=== PATIENT | female | born 1990 | race Caucasian/White ===

== ENCOUNTER → 2017-04-08 | Outpatient (CLI) | payer OTHER ==
--- NOTE | 2017-04-08 22:24 | MR ---
EXAMINATION TYPE: MR brain/lspine wo con DATE OF EXAM: 04/08/2017 COMPARISON: NONE HISTORY: Headaches and lumbago per order. Back pain for a while at the buttocks per patient. TECHNIQUE: Multiplanar, multisequence imaging of the lumbar spine, brain and brainstem are all perfor med without IV contrast. FINDINGS: BRAIN: Diffusion weighted images demonstrate no evidence of a recent infarct or other diffusion abnormality. There is no extraaxial fluid collection or significant white matter signal abnormality. T2 hyperinten se focus on FLAIR images 23 and 24 does not reproduce and T2-weighted images right parietal region an d is presumed artifact. The ventricular system and cisternal spaces are normal in size and appearance . The brain volume is age appropriate. Midline structures demonstrate normal morphology. The craniocervical junction appears within normal limits. Normal vascular flow voids are present. The visualized sinuses are clear and the globes are i ntact. IMPRESSION: No significant finding is seen to account for patient's symptoms. L-SPINE: FINDINGS: Survey images shows levoconvex scoliosis centered in the upper to mid lumbar spine. Sagitta l images of the lumbar spine show vertebral body heights to appear satisfactory. There is loss of nor mal lumbar lordosis on sagittal images. There is disc desiccation L4-L5 level otherwise intervertebra l discs demonstrate normal heights and hydration. No large posterior disc herniations are seen on sag ittal images. The conus medullaris is normal in position and signal ending at inferior L1 level. The bone marrow signal intensity is within normal limits. No significant spurring is seen. Axial images show the T12-L1, L1-L2, L2-L3, and L3-L4 levels all to appear within normal limits. Axial images at L4-L5 level show broad-based central disc protrusion mildly effacing anterior thecal sac, bilateral neural foramina are patent. Increased signal posteriorly consistent with annular tear is noted at this level. Axial images at L5-S1 level are felt within normal limits. IMPRESSION: Disc desiccation with annular tear L4-L5 level. Small posterior disc herniation minimally effacing anterior thecal sac at this level.
== END | disposition home or self-care (01) ==
LOC: RADMRIMAIN 20:41
PROVIDERS: ATTEND Nurse Practitioner Acute Care
DX: M51.26 Other intervertebral disc displacement, lumbar region (principal); M51.36 Other intervertebral disc degeneration, lumbar region; R51 Headache; Z88.0 Allergy status to penicillin
CPT/HCPCS: 70551; 72148

== ENCOUNTER → 2019-03-03 | Outpatient (CLI) | payer OTHER ==
[2019-03-03 15:41] LABS: HCT 41.2 % (34.0-46.0); HGB 13.4 gm/dL (11.4-16.0); MCH 29.1 pg (25.0-35.0); MCHC 32.5 g/dL (31.0-37.0); MCV 89.7 fL (80.0-100.0); Mean Platelet Volume 6.7; Platelet Count 303 k/uL (150-450); RBC 4.59 m/uL (3.80-5.40); WBC 6.7 k/uL (3.8-10.6)
[2019-03-04 00:51] LABS: Albumin 4.3 g/dL (3.80-4.90); Albumin/Globulin Ratio 2.53 (1.60-3.17); Anion Gap 10.2 mmol/L (4.00-12.00); Calcium 8.8 mg/dL (8.7-10.3); Carbon Dioxide 24.8 mmol/L (21.6-31.8); Globulin 1.7 g/dL (1.6-3.3); Potassium 3.9 mmol/L (3.5-5.5); Total Bilirubin 0.2 mg/dL (0.2-1.2)
[2019-03-04 01:59] LABS: T4, Free (Free Thyroxine) 0.9 ng/dL (0.80-1.80)
[2019-03-04 02:02] LABS: Hemoglobin A1C 5.6 % (4.0-6.0)
== END | disposition home or self-care (01) ==
LOC: LABWHC1 14:36
PROVIDERS: ATTEND Obstetrics & Gynecology
DX: E03.9 Hypothyroidism, unspecified (principal); R10.2 Pelvic and perineal pain; R60.0 Localized edema; Z13.1 Encounter for screening for diabetes mellitus
CPT/HCPCS: 36415; 80053; 83036; 84439; 84443; 85027

== ENCOUNTER 2021-04-23 13:45 | Emergency (ER) | payer OTHER ==
[2021-04-23 14:06] VITALS: RESP 18; TEMP 98
--- NOTE | 2021-04-23 15:39 | XR ---
EXAMINATION TYPE: XR nasal bone DATE OF EXAM: 04/23/2021 COMPARISON: NONE HISTORY: Pain TECHNIQUE: 3 views submitted FINDINGS: Maxillary styloid intact. Visualized osseous structures intact. There is a thin linear luce ncy along the anterior margin of the nasal bridge no significant depression. Nasal septal deviation n oted. IMPRESSION: 1. Findings compatible with hairline fracture through the anterior margin of the nasal bridge with no significant depression.
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
[2021-04-23 16:12] VITALS: BP 116/76; PULSE 63
== END 2021-04-23 16:12 | disposition home or self-care (01) ==
LOC: EC 13:45
DX: S02.2XXA Fracture of nasal bones, initial encounter for closed fracture (principal); V48.6XXA Car passenger injured in noncollision transport accident in traffic accident, initial encounter; Y92.410 Unspecified street and highway as the place of occurrence of the external cause
CPT/HCPCS: 70160; 99284

== ENCOUNTER → 2021-05-31 | Outpatient (CLI) | payer OTHER ==
[2021-06-01 04:16] LABS: T4, Free (Free Thyroxine) 0.8 ng/dL (0.80-1.80)
[2021-06-01 04:38] LABS: Thyroid Peroxidase Antibodies 5195.2 U/mL (0.0-60.0)
== END | disposition home or self-care (01) ==
LOC: LABWHC1 14:04
PROVIDERS: ATTEND Internal Medicine
DX: R00.2 Palpitations (principal)
CPT/HCPCS: 36415; 84439; 84443; 84481; 86376; 86800

== ENCOUNTER → 2021-06-10 | Outpatient (CLI) | payer OTHER ==
--- NOTE | 2021-06-23 10:32 | EM ---
EVENT MONITOR SEVEN-DAY EVENT MONITOR: INDICATION: Palpitations. Underlying rhythm is sinus. There were episodes of sinus tachycardia and sinus bradycardia noted. Occasional PVCs are noted. There are no episodes of sustained ventricular or supraventricular tachyarrhythmias. There are no episodes of more than 2- second pauses. CONCLUSIONS: This seven-day event monitor shows sinus rhythm with sinus tachycardia and sinus bradycardia. MMODL / IJN: [id number] /
== END | disposition home or self-care (01) ==
LOC: RADECHMAIN 13:42
PROVIDERS: ATTEND Internal Medicine
DX: R00.0 Tachycardia, unspecified (principal); R00.1 Bradycardia, unspecified
CPT/HCPCS: 93270

== ENCOUNTER → 2023-12-01 | Outpatient (CLI) | payer OTHER ==
--- NOTE | 2023-12-01 12:48 | CT ---
EXAMINATION TYPE: CT abdomen pelvis w con CT DLP: 710 mGycm, Automated exposure control for dose reduction was used. DATE OF EXAM: 12/01/2023 12:36 PM COMPARISON: None CLINICAL INDICATION:Female, 33 years old with history of abd pain; TECHNIQUE: Axial CT abdomen pelvis w con;Sagittal and coronal reformats were created on a separate w orkstation. Contrast used: 100 cc Isovue-300. Oral contrast used: Oral contrast given. FINDINGS: LOWER CHEST: Unremarkable ABDOMEN LIVER: Unremarkable GALLBLADDER AND BILE DUCTS: Unremarkable. PANCREAS: Unremarkable. SPLEEN: Unremarkable. ADRENAL GLANDS: Unremarkable. KIDNEYS AND URETERS: No evidence of hydronephrosis or renal calculus. The ureters are unremarkable. PELVIS BLADDER: Unremarkable REPRODUCTIVE: Unremarkable. ABDOMEN & PELVIS STOMACH AND BOWEL: No evidence of bowel obstruction. The appendix is visualized and filled with contr ast. PERITONEUM/RETROPERITONEUM: No evidence of pneumoperitoneum or free fluid. VASCULATURE: No evidence of aortic aneurysm. MUSCULOSKELETAL: No acute osseous abnormalities LYMPH NODES: No gross evidence for lymphadenopathy. SOFT TISSUE/ABDOMINAL WALL: Unremarkable IMPRESSION: No evidence for obstructive uropathy or renal calculus. The appendix is normal. No acute abdominal pr ocess.
== END | disposition home or self-care (01) ==
LOC: RADCTMAIN 10:31
PROVIDERS: ATTEND Internal Medicine Geriatric Medicine
DX: R10.9 Unspecified abdominal pain (principal)
CPT/HCPCS: 74177; Q9967

== ENCOUNTER 2024-10-26 18:36 | Emergency (ER) | payer OTHER ==
[2024-10-26 18:45] VITALS: RESP 20
--- NOTE | 2024-10-26 18:55 | ED ---
GI Bleed HPI - General Chief complaint: GI Bleed Stated complaint: Rectal Bleeding Time Seen by Provider: 10/26/24 18:54 Source: patient, RN notes reviewed Mode of arrival: ambulatory Limitations: no limitations - History of Present Illness Initial comments: Patient is a 34-year-old female presented to the ER for evaluation of rectal bleeding. Patient states around 5 PM this evening while having a bowel movement she noted a large amount of bright red blood in the toilet. She states it felt like a menstrual cycle amount of bleeding. She states the amount of bleeding has since subsided. She has no history of GI bleeds, ulcerative colitis, Crohn's disease, reticulitis, bowel surgeries/resections, hemorrhoids or anal fissures. Patient denies any abdominal pain, nausea, vomiting, fevers, chills, chest pain, shortness of breath, urinary complaints or peripheral edema. - Related Data Home Medications Medication Instructions Recorded Confirmed [id number] 1 tab PO DAILY 10/30/14 11/03/14 Allergies Allergy/AdvReac Type Severity Reaction Status Date / Time amoxicillin Allergy Anaphylaxis Verified 10/26/24 18:45 Penicillins Allergy Anaphylaxis Verified 10/26/24 18:45 Review of Systems ROS Statement: Those systems with pertinent positive or pertinent negative responses have been documented in the HPI. ROS Other: All systems not noted in ROS Statement are negative. Past Medical History Additional Past Medical History / Comment(s): ventura's History of Any Multi-Drug Resistant Organisms: MRSA Date of last positivie culture/infection: 2014 Past Surgical History: Tubal Ligation Past Psychological History: Anxiety Smoking Status: Never smoker Past Alcohol Use History: None Reported Past Drug Use History: None Reported General Exam Limitations: no limitations General appearance: alert, in no apparent distress Respiratory exam: Present: normal lung sounds bilaterally. Absent: respiratory distress, wheezes, rales, rhonchi, stridor Cardiovascular Exam: Present: regular rate, normal rhythm, normal heart sounds. Absent: systolic murmur, diastolic murmur, rubs, gallop, clicks GI/Abdominal exam: Present: soft, normal bowel sounds. Absent: distended, tenderness, guarding, rebound, rigid Rectal exam: Present: normal inspection, normal rectal tone Neurological exam: Present: alert, oriented X3, CN II-XII intact Skin exam: Present: warm, dry, intact, normal color. Absent: rash Course Vital Signs 10/26/24 10/26/24 18:40 22:40 Temperature 97.7 F 97.9 F Pulse Rate 87 81 Respiratory 20 20 Rate Blood Pressure 122/69 118/71 O2 Sat by Pulse 97 98 Oximetry - Reevaluation(s) Reevaluation #1: Rectal exam chaperoned by Maddy Hull RN. Medical Decision Making - Medical Decision Making @ -Was pt. sent in by a medical professional or institution (, PA, [facility], [facility], hospital, or long term...) When possible be specific @ -No Did you speak to anyone other than the patient for history (EMS, parent, family, police, friend...)? What history was obtained from this source @ -No Did you review nursing and triage notes (agree or disagree)? Why? @ -I reviewed and agree with nursing and triage notes Were old charts reviewed (outside hosp., previous admission, EMS record, old EKG, old radiological studies, urgent care reports/EKG's, long term records)? Report findings @ -No old charts were reviewed Differential Diagnosis (chest pain, altered mental status, abdominal pain women, abdominal pain men, vaginal bleeding, weakness, fever, dyspnea, syncope, headache, dizziness, GI bleed, back pain, seizure, CVA, palpatations, mental health, musculoskeletal)? @ -Differential GI Bleed: Esophageal varices, aortoenteric fistula, Peyton- Alonso, gastritis, peptic ulcer disease, diverticulosis, inflammatory bowel disease, hemorrhoids, fissure, colitis, malignancy, Meckel's diverticulum, this is not meant to be an all-inclusive list. EKG interpreted by me (3pts min.). @ -None done X-rays interpreted by me (1pt min.). @ -None done CT interpreted by me (1pt min.). @ -CT abdomen pelvis negative for acute intra-abdominal process. U/S interpreted by me (1pt. min.). @ -None done What testing was considered but not performed or refused? (CT, X-rays, U/S, labs)? Why? @ -None What meds were considered but not given or refused? Why? @ -None Did you discuss the management of the patient with other professionals (professionals i.e. , PA, [employer], lab, RT, psych nurse, family welfare social work professor, belt splicer, teacher, family preservation officer, casey saw operator)? Give summary @ -No Was smoking cessation discussed for >3mins.? @ -No Was critical care preformed (if so, how long)? @ -No Were there social determinants of health that impacted care today? How? (Homelessness, low income, unemployed, alcoholism, drug addiction, transportation, low edu. Level, literacy, decrease access to med. care, skilled nursing, rehab)? @ -No Was there de-escalation of care discussed even if they declined (Discuss DNR or withdrawal of care, Hospice)? DNR status @ -No What co-morbidities impacted this encounter? (DM, HTN, Smoking, COPD, CAD, Cancer, CVA, ARF, Chemo, Hep., AIDS, mental health diagnosis, sleep apnea, morbid obesity)? @ -None Was patient admitted / discharged? Hospital course, mention meds given and route, prescriptions, significant lab abnormalities, going to OR and other p ertinent info. @ -Discharge. 34-year-old female presented the ER for evaluation of rectal bleeding. Upon rooming, history and physical exam completed. Vitals stable. Patient in no signs of acute distress nontoxic-appearing. Exam benign. Rectal exam performed and chaperoned by Maddy Fletcher RN. Exam negative for gross blood, hemorrhoids or anal fissures. Laboratory studies obtained showing a l eukocytosis of 16.6 with a left shift which is believed to be due to current prednisone use for a sinus infection. Stable hemoglobin 12.9. Coagulation studies within normal limits. CMP unimpressive. Stool occult positive. Urinalysis with few bacteria urine will be sent for culture. Antibiotics pending UA culture as patient has no current symptoms, patient is agreeable. hCG negative. CT abdomen pelvis negative. As patient has stable hemoglobin, stable vital signs, and no acute process seen on CT abdomen pelvis I believe patient is stable for discharge and outpatient follow-up. Upon reevaluation, patient resting company in exam and no signs of acute distress. Results discussed with patient, all questions answered. Patient denying any reoccurring bleeding while in the ER. Strict return parameters were discussed. I advised her to follow-up closely with PCP in the next 1 to 2 days. Patient discharged in stable condition. Patient verbally expressed understanding and agreement with care plan. Case discussed with ED attending, Dr. Antunez. Undiagnosed new problem with uncertain prognosis? @ -No Drug Therapy requiring intensive monitoring for toxicity (Heparin, Nitro, Insuli n, Cardizem)? @ -No Were any procedures done? @ -No Diagnosis/symptom? @ -Stool occult positive Acute, or Chronic, or Acute on Chronic? @ -Acute Uncomplicated (without systemic symptoms) or Complicated (systemic symptoms)? @ -Uncomplicated Side effects of treatment? @ -No Exacerbation, Progression, or Severe Exacerbation? @ -No Poses a threat to life or bodily function? How? (Chest pain, [place], [place], pneumonia, PE, COPD, DKA, ARF, appy, cholecystitis, CVA, Diverticulitis, Homicidal, Suicidal, threat to staff... and all critical care pts) @ -No - Lab Data Result diagrams: 10/26/24 20:13 10/26/24 20:13 Lab Results 10/26/24 10/26/24 10/26/24 Range/Units 19:07 19:58 19:58 WBC (3.8-10.6) k/uL RBC (3.80-5.40) m/uL Hgb (11.4-16.0) gm/dL Hct (34.0-46.0) % MCV (80.0-100.0) fL MCH (25.0-35.0) pg MCHC (31.0-37.0) g/dL RDW (11.5-15.5) % Plt Count (150-450) k/uL MPV Neutrophils % % Lymphocytes % % Monocytes % % Eosinophils % % Basophils % % Neutrophils # (1.3-7.7) k/uL Lymphocytes # (1.0-4.8) k/uL Monocytes # (0-1.0) k/uL Eosinophils # (0-0.7) k/uL Basophils # (0-0.2) k/uL PT (10.0-12.5) sec INR (<1.2) APTT (22.0-30.0) sec Sodium (137-145) mmol/L Potassium (3.5-5.1) mmol/L Chloride (98-107) mmol/L Carbon Dioxide (22-30) mmol/L Anion Gap mmol/L BUN (7-17) mg/dL Creatinine (0.52-1.04) mg/dL Est GFR (CKD-EPI)AfAm (>60 ml/min/1.73 sqM) Est GFR (CKD-EPI)NonAf (>60 ml/min/1.73 sqM) Glucose (74-99) mg/dL Calcium (8.4-10.2) mg/dL Total Bilirubin (0.2-1.3) mg/dL AST (14-36) U/L ALT (4-34) U/L Alkaline Phosphatase (38-126) U/L Total Protein (6.3-8.2) g/dL Albumin (3.5-5.0) g/dL Urine Color Colorless Urine Appearance Cloudy H (Clear) Urine pH 7.0 (5.0-8.0) Ur Specific [place] 1.013 (1.001-1.035) Urine Protein Negative (Negative) Urine Glucose (UA) Negative (Negative) Urine Ketones Negative (Negative) Urine Blood Negative (Negative) Urine Nitrite Negative (Negative) Urine Bilirubin Negative (Negative) Urine Urobilinogen <2.0 (<2.0) mg/dL Ur Leukocyte Esterase Negative (Negative) Urine RBC 1 (0-5) /hpf Urine WBC <1 (0-5) /hpf Ur Squamous Epith Cells 4 (0-4) /hpf Amorphous Sediment Rare H (None) /hpf Urine Bacteria Few H (None) /hpf Urine Mucus Rare H (None) /hpf Urine HCG, Qual Not Detected (Not Detectd) Stool Occult Blood Positive H (Negative) Blood Type Blood Type Recheck Bld Type Recheck Status Antibody Screen Spec Expiration Date 10/26/24 10/26/24 10/26/24 Range/Units 20:13 20:13 20:13 WBC 16.6 H (3.8-10.6) k/uL RBC 4.38 (3.80-5.40) m/uL Hgb 12.9 (11.4-16.0) gm/dL Hct 38.5 (34.0-46.0) % MCV 87.9 (80.0-100.0) fL MCH 29.5 (25.0-35.0) pg MCHC 33.6 (31.0-37.0) g/dL RDW 13.4 (11.5-15.5) % Plt Count 384 (150-450) k/uL MPV 7.2 Neutrophils % 85 % Lymphocytes % 10 % Monocytes % 3 % Eosinophils % 1 % Basophils % 0 % Neutrophils # 14.2 H (1.3-7.7) k/uL Lymphocytes # 1.7 (1.0-4.8) k/uL Monocytes # 0.4 (0-1.0) k/uL Eosinophils # 0.2 (0-0.7) k/uL Basophils # 0.0 (0-0.2) k/uL PT 9.9 L (10.0-12.5) sec INR 0.9 (<1.2) APTT 23.1 (22.0-30.0) sec Sodium 138 (137-145) mmol/L Potassium 4.2 (3.5-5.1) mmol/L Chloride 101 (98-107) mmol/L Carbon Dioxide 29 (22-30) mmol/L Anion Gap 8 mmol/L BUN 11 (7-17) mg/dL Creatinine 0.65 (0.52-1.04) mg/dL Est GFR (CKD-EPI)AfAm >90 (>60 ml/min/1.73 sqM) Est GFR (CKD-EPI)NonAf >90 (>60 ml/min/1.73 sqM) Glucose 110 H (74-99) mg/dL Calcium 9.9 (8.4-10.2) mg/dL Total Bilirubin 0.2 (0.2-1.3) mg/dL AST 33 (14-36) U/L ALT 64 H (4-34) U/L Alkaline Phosphatase 86 (38-126) U/L Total Protein 7.8 (6.3-8.2) g/dL Albumin 4.7 (3.5-5.0) g/dL Urine Color Urine Appearance (Clear) Urine pH (5.0-8.0) Ur Specific [place] (1.001-1.035) Urine Protein (Negative) Urine Glucose (UA) (Negative) Urine Ketones (Negative) Urine Blood (Negative) Urine Nitrite (Negative) Urine Bilirubin (Negative) Urine Urobilinogen (<2.0) mg/dL Ur Leukocyte Esterase (Negative) Urine RBC (0-5) /hpf Urine WBC (0-5) /hpf Ur Squamous Epith Cells (0-4) /hpf Amorphous Sediment (None) /hpf Urine Bacteria (None) /hpf Urine Mucus (None) /hpf Urine HCG, Qual (Not Detectd) Stool Occult Blood (Negative) Blood Type Blood Type Recheck Bld Type Recheck Status Antibody Screen Spec Expiration Date 10/26/24 Range/Units 20:40 WBC (3.8-10.6) k/uL RBC (3.80-5.40) m/uL Hgb (11.4-16.0) gm/dL Hct (34.0-46.0) % MCV (80.0-100.0) fL MCH (25.0-35.0) pg MCHC (31.0-37.0) g/dL RDW (11.5-15.5) % Plt Count (150-450) k/uL MPV Neutrophils % % Lymphocytes % % Monocytes % % Eosinophils % % Basophils % % Neutrophils # (1.3-7.7) k/uL Lymphocytes # (1.0-4.8) k/uL Monocytes # (0-1.0) k/uL Eosinophils # (0-0.7) k/uL Basophils # (0-0.2) k/uL PT (10.0-12.5) sec INR (<1.2) APTT (22.0-30.0) sec Sodium (137-145) mmol/L Potassium (3.5-5.1) mmol/L Chloride (98-107) mmol/L Carbon Dioxide (22-30) mmol/L Anion Gap mmol/L BUN (7-17) mg/dL Creatinine (0.52-1.04) mg/dL Est GFR (CKD-EPI)AfAm (>60 ml/min/1.73 sqM) Est GFR (CKD-EPI)NonAf (>60 ml/min/1.73 sqM) Glucose (74-99) mg/dL Calcium (8.4-10.2) mg/dL Total Bilirubin (0.2-1.3) mg/dL AST (14-36) U/L ALT (4-34) U/L Alkaline Phosphatase (38-126) U/L Total Protein (6.3-8.2) g/dL Albumin (3.5-5.0) g/dL Urine Color Urine Appearance (Clear) Urine pH (5.0-8.0) Ur Specific [place] (1.001-1.035) Urine Protein (Negative) Urine Glucose (UA) (Negative) Urine Ketones (Negative) Urine Blood (Negative) Urine Nitrite (Negative) Urine Bilirubin (Negative) Urine Urobilinogen (<2.0) mg/dL Ur Leukocyte Esterase (Negative) Urine RBC (0-5) /hpf Urine WBC (0-5) /hpf Ur Squamous Epith Cells (0-4) /hpf Amorphous Sediment (None) /hpf Urine Bacteria (None) /hpf Urine Mucus (None) /hpf Urine HCG, Qual (Not Detectd) Stool Occult Blood (Negative) Blood Type A Positive Blood Type Recheck A Pos Bld Type Recheck Status No Antibody Screen NEGATIVE Spec Expiration Date 10/29/20242339 - Radiology Data Radiology results: report reviewed, image reviewed Disposition Clinical Impression: Occult blood positive stool Disposition: HOME SELF-CARE Condition: Stable Instructions (If sedation given, give patient instructions): Gastrointestinal Bleeding (ED) Additional Instructions: Follow-up closely with PCP. Gastroenterology evaluation may be indicated if you are having recurring bouts of rectal bleeding. Return to the ER for any new or worsening concerns. Is patient prescribed a controlled substance at d/c from ED?: No Referrals: Missy Chew NPC [Family Provider] - 1-2 days Time of Disposition: 22:01
[2024-10-26 20:49] LABS: Amorphous Sediment,Urine Rare /hpf; Appearance,Urine Cloudy (Clear); Bacteria,Urine Few /hpf; Bilirubin,Urine Negative (Negative); Blood,Urine Negative (Negative); Color,Urine Colorless; Glucose,Urine (UA) Negative (Negative); Ketones,Urine Negative (Negative); Leukocyte Esterase,Urine Negative (Negative); Mucus,Urine Rare /hpf; Nitrite,Urine Negative (Negative); Protein,Urine Negative (Negative); RBC,Urine 1 /hpf (0-5); Specific Gravity,Urine 1.013 (1.001-1.035); Squamous Epithelial Cell,Urine 4 /hpf (0-4); Urobilinogen,Urine <2.0 mg/dL (<2.0); WBC,Urine <1 /hpf (0-5)
[2024-10-26 20:59] LABS: Basophils % (A) 0 %; Eosinophils # (A) 0.2 k/uL (0-0.7); Eosinophils % (A) 1 %; HCT 38.5 % (34.0-46.0); HGB 12.9 gm/dL (11.4-16.0); Lymphocytes # (A) 1.7 k/uL (1.0-4.8); Lymphocytes % (A) 10 %; MCH 29.5 pg (25.0-35.0); MCHC 33.6 g/dL (31.0-37.0); MCV 87.9 fL (80.0-100.0); Mean Platelet Volume 7.2; Monocytes # (A) 0.4 k/uL (0-1.0); Monocytes % (A) 3 %; Neutrophils # (A) 14.2 k/uL (1.3-7.7); Neutrophils % (A) 85 %; Platelet Count 384 k/uL (150-450); RBC 4.38 m/uL (3.80-5.40); RDW 13.4 % (11.5-15.5); WBC 16.6 k/uL (3.8-10.6)
[2024-10-26 21:24] LABS: INR 0.9 (<1.2); Partial Thromboplastin Time 23.1 sec (22.0-30.0); Prothrombin Time 9.9 sec (10.0-12.5)
[2024-10-26 21:29] LABS: ALT 64 U/L (4-34); AST 33 U/L (14-36); African American GFR (CKD) >90 (>60 ml/min/1.73 sqM); Albumin 4.7 g/dL (3.5-5.0); Alkaline Phosphatase 86 U/L (38-126); Anion Gap 8 mmol/L; Blood Urea Nitrogen 11 mg/dL (7-17); Calcium 9.9 mg/dL (8.4-10.2); Carbon Dioxide 29 mmol/L (22-30); Chloride 101 mmol/L (98-107); Glucose 110 mg/dL (74-99); Non-African American GFR(CKD) >90 (>60 ml/min/1.73 sqM); Potassium 4.2 mmol/L (3.5-5.1); Sodium 138 mmol/L (137-145); Total Bilirubin 0.2 mg/dL (0.2-1.3); Total Protein 7.8 g/dL (6.3-8.2)
--- NOTE | 2024-10-26 21:49 | CT ---
EXAMINATION TYPE: CT abdomen pelvis w con DATE OF EXAM: 10/26/2024 9:26 PM COMPARISON: CT abdomen pelvis most recent from CLINICAL INDICATION: Female, 34 years old with history of rectal bleeding no pain; rectal bleeding to day, stopped since she arrived in the ED TECHNIQUE: Axial CT abdomen pelvis w con;Sagittal and coronal reformats were created on a separate w orkstation. Contrast used:100ml mL of Isovue 300 with IV Contrast, (none if empty) Oral contrast used: without Oral Contrast (none if empty) CT DLP: 1490 mGycm, Automated exposure control for dose reduction was used. FINDINGS: LOWER CHEST: Unremarkable ABDOMEN LIVER: Tiny hypodense lesions in the right hepatic lobe likely reflecting simple cysts or benign bill ngiomas. Portal veins appear patent. GALLBLADDER AND BILE DUCTS: Unremarkable. PANCREAS: Unremarkable. SPLEEN: Unremarkable. ADRENAL GLANDS: Unremarkable. KIDNEYS AND URETERS: No evidence of hydronephrosis or renal calculus. The ureters are unremarkable. PELVIS BLADDER: No evidence for wall thickening or mass given limitations of exam. REPRODUCTIVE: Unremarkable. ABDOMEN & PELVIS STOMACH AND BOWEL: Stomach and duodenum are unremarkable No evidence of bowel obstruction. No abnorma l small or large bowel wall thickening. No evidence of acute mesenteric inflammation. PERITONEUM/RETROPERITONEUM: No evidence of pneumoperitoneum or free fluid. VASCULATURE: No evidence of aortic aneurysm. MUSCULOSKELETAL: No acute osseous abnormalities LYMPH NODES: No gross evidence for lymphadenopathy. SOFT TISSUE/ABDOMINAL WALL: Unremarkable IMPRESSION: No acute abnormality in the abdomen/pelvis or CT findings to explain reported symptoms. [facility], , 10/26/2024 9:47 PM
[2024-10-26 22:41] VITALS: BP 118/71; PULSE 81; TEMP 97.9
== END 2024-10-26 22:41 | disposition home or self-care (01) ==
LOC: EC 18:36
DX: R19.5 Other fecal abnormalities (principal); Z88.0 Allergy status to penicillin
CPT/HCPCS: 36415; 86900; 86901; 80053; 85025; 85610; 85730; 86850; 82272; 81001; 81025; 74177; 99285; Q9967

== ENCOUNTER 2024-12-23 11:12 | Day surgery (SDC) | payer OTHER ==
[2024-12-22 13:45] VITALS: BMI 34.2
[2024-12-23 12:19] VITALS: RESP 16; TEMP 98.1
[2024-12-23] MEDS: IV FLUID CONTINUATION 1,000 ML IV ONE (12:22)
[2024-12-23] MEDS: LACTATED RINGERS 1,000 ML IV SCH (12:23)
[2024-12-23] MEDS ORDERED: PROPOFOL 10 MG/ML 20 ML VIAL IV ONE (13:16)
--- NOTE | 2024-12-23 13:34 | P.PCN ---
Date of Procedure: 12/23/24 Procedure(s) Performed: BRIEF HISTORY: Patient is a 34-year-old pleasant white female scheduled for an elective colonoscopy as a part of evaluation of intermittent rectal bleeding. PROCEDURE PERFORMED: Colonoscopy with biopsy. PREOPERATIVE DIAGNOSIS: Intermittent rectal bleeding. IV sedation per Anesthesia. PROCEDURE: After informed consent was obtained, the patient, was brought into the endoscopy unit. IV sedation was administered by Anesthesia under continuous monitoring. Digital rectal examination was normal. Initially the Olympus CF-160 flexible video colonoscope was then inserted in the rectum, gradually advanced into the cecum without any difficulty. Careful examination was performed as the scope was gradually being withdrawn. Ileocecal valve and the appendiceal orifice were visualized and appeared normal. Prep was excellent. Mucosa of the cecum, appeared normal. In the ascending colon there was a 5 mm sessile polyp that was removed by cold biopsy. Rest of the ascending colon, transverse colon, descending colon, sigmoid colon, and rectum appeared normal. Retroflexion was performed in the rectum and small internal hemorrhoids were seen. The patient tolerated the procedure well. IMPRESSION: 5 mm ascending colon polyp status post cold biopsy Small internal hemorrhoids RECOMMENDATIONS: Findings of this examination were discussed with the patient as well as her family. She was advised to be on a high-fiber diet and take fiber supplements on a regular basis. The biopsy reveals adenoma she can have repeat colonoscopy in 5 years..
[2024-12-23 13:46] LABS: Glucose,Whole Blood 90 mg/dL (70-110)
[2024-12-23 13:58] VITALS: BP 116/73; PULSE 66
== END 2024-12-23 14:25 | disposition home or self-care (01) ==
LOC: ORWHC2ENDO 11:12
PROVIDERS: ATTEND Internal Medicine Gastroenterology
DX: D12.2 Benign neoplasm of ascending colon (principal); K64.8 Other hemorrhoids; E07.9 Disorder of thyroid, unspecified; F41.9 Anxiety disorder, unspecified; Z89.519 Acquired absence of unspecified leg below knee; Z88.0 Allergy status to penicillin; Z79.890 Hormone replacement therapy; Z79.899 Other long term (current) drug therapy
CPT/HCPCS: 81025; 88305; 45380; J2704

== ENCOUNTER → 2025-02-23 | Outpatient (CLI) | payer OTHER ==
[2025-02-23 20:39] LABS: Basophils # (A) 0.03 X 10*3/uL (0.00-0.10); Basophils % (A) 0.5 %; Eosinophils # (A) 0.14 X 10*3/uL (0.04-0.35); Eosinophils % (A) 2.2 %; HGB 12.9 g/dL (12.0-15.0); Lymphocytes # (A) 2.12 X 10*3/uL (0.90-5.00); Lymphocytes % (A) 32.7 %; MCH 29.1 pg (27.0-32.0); MCHC 33.1 g/dL (32.0-37.0); Mean Platelet Volume 9.7 FL (9.5-12.2); Monocytes % (A) 4.6 %; NRBC Per 100 WBC 0 X 10*3/uL (0.00-0.01); Neutrophils # (A) 3.89 X 10*3/uL (1.80-7.70); Neutrophils % (A) 59.8 %; Platelet Count 372 X 10*3/uL (140-440); RBC 4.43 X 10*6/uL (4.10-5.20); RDW 12.7 % (11.5-14.5); WBC 6.49 X 10*3/uL (4.50-10.00)
[2025-02-23 21:44] LABS: Blood Urea Nitrogen 8.8 mg/dL (9.0-27.0); Carbon Dioxide 23.4 mmol/L (21.6-31.8); Chloride 104 mmol/L (96-109); Glucose 84 mg/dL (70-110); Potassium 4.4 mmol/L (3.5-5.5); Sodium 141 mmol/L (135-145)
== END | disposition home or self-care (01) ==
LOC: LABPAT 11:35
PROVIDERS: ATTEND Obstetrics & Gynecology
DX: Z01.812 Encounter for preprocedural laboratory examination (principal); R10.2 Pelvic and perineal pain
CPT/HCPCS: 80051; 82565; 82947; 84520; 85025; 86850; 86900; 86901; 87086

== ENCOUNTER 2025-03-06 05:32 | Day surgery (SDC) | payer OTHER ==
[2025-02-27 12:09] VITALS: BMI 36.3
[2025-03-06] MEDS ORDERED: HYDROmorphone 0.5 MG/0.5 ML SYRINGE IVP PRN (06:09)
[2025-03-06] MEDS: LACTATED RINGERS 1,000 ML IV SCH (06:35)
[2025-03-06] MEDS: LIDOCAINE 1% (10MG/ML) FOR IV START INTRADERMA PRN (06:35)
[2025-03-06] MEDS: IV FLUID CONTINUATION 1,000 ML IV ONE ×2 (06:35→09:19)
[2025-03-06] MEDS: ONDANSETRON 4 MG/2 ML VIAL IVP ONE (06:44)
[2025-03-06] MEDS: DEXAMETHASONE SOD PHOSPHATE 4 MG/ML 1 ML VIAL IV ONE (06:44)
[2025-03-06] MEDS: MIDAZOLAM 2 MG/2 ML VIAL IV PRN (07:10)
[2025-03-06] MEDS: fentaNYL (PF) 50 MCG/ML 2 ML AMP IVP PRN (07:10)
[2025-03-06] MEDS ORDERED: NALOXONE 0.4 MG/ML 1 ML VIAL IV PRN (07:24)
[2025-03-06] MEDS ORDERED: NALBUPHINE 10 MG/ML (10 ML MDV) IV PRN (07:24)
--- NOTE | 2025-03-06 07:24 | P.ANPRN ---
Procedure Note - Anesthesia - Epidural/Spinal Spinal Time Out Performed: Yes Date of Procedure: 03/06/25 Procedure Start Time: 07:10 Procedure Stop Time: 07:19 Location of Patient: PreOp Indication: Acute Post-Operative Pain, Requested by Surgeon Sedation Type: Sedate with meaningful contact maintained Preparation: Sterile Prep Position: Sitting Needle Guage: 25 Injectate: Fentanyle 25 mcg + 300 mcg Duramorph injected intrathecally Blood Aspirated: No Pain Paresthesia on Injection Noted: No Events: Uneventful and Well Tolerated
--- NOTE | 2025-03-06 07:52 | P.HPOB ---
History of Present Illness H&P Date: 03/06/25 Presents for robotic assisted laparoscopic vaginal hysterectomy and bilateral salpingectomy. Possible WILLEM/BSO Review of Systems All systems: negative Constitutional: Denies chills, Denies fever Eyes: denies blurred vision, denies pain Ears, nose, mouth and throat: Denies headache, Denies sore throat Cardiovascular: Denies chest pain, Denies shortness of breath Respiratory: Denies cough Gastrointestinal: Denies abdominal pain, Denies diarrhea, Denies nausea, Denies vomiting Genitourinary: Denies dysuria, Denies hematuria Musculoskeletal: Denies myalgias Integumentary: Denies pruritus, Denies rash Neurological: Denies numbness, Denies weakness Psychiatric: Denies anxiety, Denies depression Endocrine: Denies fatigue, Denies weight change Past Medical History Past Medical History: Thyroid Disorder Additional Past Medical History / Comment(s): Dari's, heart murmur. History of Any Multi-Drug Resistant Organisms: MRSA Date of last positivie culture/infection: 2014 MDRO Source:: leg wound Past Surgical History: Tubal Ligation Additional Past Surgical History / Comment(s): Colonoscopy. Past Anesthesia/Blood Transfusion Reactions: No Reported Reaction Additional Past Anesthesia/Blood Transfusion Reaction / Comment(s): No blood transfusion hx. Smoking Status: Never smoker - Past Family History Mother Family Medical History: No Reported History Medications and Allergies Home Medications Medication Instructions Recorded Confirmed Type Cholecalciferol [Vitamin D3 (25 25 mcg PO DAILY 12/22/24 02/27/25 History Mcg = 1000 Iu)] Levothyroxine Sodium 25 mcg PO QAM 12/22/24 02/27/25 History Multivitamin [Multivitamins Adult 1 each PO DAILY 12/22/24 02/27/25 History Gummies] Semaglutide [Wegovy] 0.25 mg SQ TH 12/22/24 02/27/25 History Sertraline [Zoloft] 25 mg PO QAM 12/22/24 02/27/25 History Allergies Allergy/AdvReac Type Severity Reaction Status Date / Time amoxicillin Allergy Anaphylaxis Verified 02/27/25 11:58 Penicillins Allergy Anaphylaxis Verified 02/27/25 11:58 Exam Osteopathic Statement: *. No significant issues noted on an osteopathic structural exam other than those noted in the History and Physical/Consult. Vital Signs Temp Pulse Resp BP Pulse Ox 03/06/25 07:20 79 16 123/75 97 03/06/25 06:27 97.5 F L 78 16 119/72 97 Intake and Output 03/05/25 03/06/25 03/06/25 22:59 06:59 14:59 Other: Weight 90.7 kg Heart: RRR Lungs: CTAB Abdomen: soft, nontender Ext: neg esperanza's Assessment and Plan (1) Menorrhagia Current Visit: Yes Status: Acute Code(s): N92.0 - EXCESSIVE AND FREQUENT MENSTRUATION WITH REGULAR CYCLE SNOMED Code(s): 980707264 Plan: 1. RALVSBS using da daysi, diagnostic cystoscopy, possible WILLEM BSO
[2025-03-06] MEDS: diphenhydrAMINE 50 MG/ML 1 ML VIAL IVP PRN (07:53)
[2025-03-06] MEDS ORDERED: ROCURONIUM 10 MG/ML (5 ML VIAL) IV ONE (07:54)
[2025-03-06] MEDS ORDERED: ACETAMINOPHEN IV (For NPO) 1,000 MG/100 ML VIAL ONE (07:54)
[2025-03-06] MEDS ORDERED: PROPOFOL 10 MG/ML 20 ML VIAL IV ONE (07:54)
[2025-03-06] MEDS ORDERED: LIDOCAINE 1% INJ 10MG/ML (20 ML MDV) ONE (07:54)
[2025-03-06] MEDS ORDERED: GLYCOPYRROLATE 0.2 MG/ML 2 ML VIAL ONE (07:54)
[2025-03-06] MEDS ORDERED: diphenhydrAMINE 50 MG/ML 1 ML VIAL ONE (07:54)
[2025-03-06] MEDS ORDERED: NEOSTIGMINE 1 MG/ML 10 ML VIAL ONE (07:54)
[2025-03-06] MEDS ORDERED: fentaNYL (PF) 50 MCG/ML 2 ML AMP ONE (07:54)
[2025-03-06] MEDS ORDERED: SUCCINYLCHOLINE CHLORIDE 200 MG/10 ML VIAL IV ONE (07:54)
[2025-03-06] MEDS ORDERED: MORPHINE SULFATE (PF) 0.3 MG/0.3 ML SYR ONE (07:54)
[2025-03-06] MEDS: ceFAZolin 2 GM in DEXTROSE 5% IN WATER 50 ML IVPB PRN (07:59)
[2025-03-06] MEDS: BUPIVACAINE (PF) 0.25% 30 ML VIAL SQ ONE ×2 (08:36→08:59)
[2025-03-06] MEDS ORDERED: ONDANSETRON 4 MG/2 ML VIAL IVP PRN (09:09)
[2025-03-06] MEDS ORDERED: SIMETHICONE 80 MG CHEWABLE PO PRN (09:09)
--- NOTE | 2025-03-06 09:09 | P.OP ---
Date of Procedure: 03/06/25 Preoperative Diagnosis: 1. menorrhagia Postoperative Diagnosis: menorrhagia Procedure(s) Performed: Robotic Assisted laparoscopic vaginal hysterectomy, bilateral salpingectomy using da farrah, diagnostic cystoscopy Anesthesia: PATRICIA Surgeon: Fely Carroll Online Activist #1: Emigdio Akins Estimated Blood Loss (ml): 5 IV fluids (ml): 400 Urine output (ml): 100 Pathology: other (uterus, cervix and bilateral fallopian tubes) Condition: stable Disposition: PACU Description of Procedure: Patient taken the operating room where general anesthesia was obtained without difficulty. She is prepped and draped in normal sterile fashion dorsal lithotomy position, legs placed in the Boo stirrups. Weighted speculum placed in the vagina and the anterior lip the cervix was grasped with single-tooth tenaculum. The uterus sounded to 14 cm and the cervix diameter was 3.5 cm. The appropriate manipulator tip and ring were placed on the Olga manipulator. The Olga manipulator was then placed in the uterus. Painting catheter was also placed. Attention was then turned to the abdomen and gloves were changed. A 5 mm supraumbilical incision was made the scalpel and a 5 mm optical trocar was placed under direct visualization. 10 cm to the right of this and 2 cm down a 5 mm incision was made and 8 mm da Farrah port was placed under direct visualization. Same measurements on the opposite side of the patient's abdomen, the 5 mm incision was made and 8 mm da Farrah port was placed under direct visualization. In the left upper quadrant a 10 mm incision was made and a 10 mm optical trocar was placed under direct visualization. The 5 mm optical trocar was then replaced with the 8 mm da Farrah camera port. The robot was docked on patient's right side. The camera was introduced and then the monopolar curved scissor and vessel sealer placed under direct visualization. I broke scrub and went to the physician console. The left mesosalpinx was sealed and cut using the vessel sealer to remove the left fallopian tube. The left round ligament was sealed and cut with the vessel sealer. The posterior leaf of the broad ligament was taken down using the monopolar curved scissors. Anterior leaf of the broad ligament was then taken down using the monopolar curved scissors. The uterine artery was noted and cut with the vessel sealer. The bladder flap was then started using the monopolar curved scissors. Attention was then turned to the right side of the patient's anatomy and the right i mesosalpinx was sealed and cut with the vessel sealer to remove the right fallopian tube. The right round ligament was sealed and cut with the vessel sealer. Posterior leaf of the broad ligament was taken down using the monopolar curved scissors and the anterior leaf was taken down using the monopolar curved scissors. The uterine artery was sealed and cut with the vessel sealer. The bladder flap was then finished on this side. Anterior colpotomy was made using the monopolar curved scissors. The rest of the uterus was from the vaginal cuff by following the ring around with the monopolar curved scissors through the uterosacral ligaments back to the anterior portion. Once the uterus and cervix were amputated they were pulled through the vaginal cuff. Hemostasis was assured. The instruments were changed for the Cardier forcep and the kennedy suture cut. The vaginal cuff was then closed using 2-O stratafix barbed suture in a running fashion. Hemostasis was again assured and the pelvis was irrigated. All instruments were removed from the abdomen and the robot was undocked. I scrubbed back in to perform a cystoscopy. There were jets from both ureteral orifices. The abdominal incisions were closed with 4-0 Vicryl in a subcuticular fashion. Patient tolerated the procedure well, sponge and instrument counts correct x2 and she was taken to recovery room in stable condition condition
[2025-03-06] MEDS: ACETAMINOPHEN TAB 500 MG TAB PO SCH (14:55)
[2025-03-06] MEDS: KETOROLAC 15 MG/ML 1 ML VIAL IVP PRN (16:27)
[2025-03-06] MEDS: IBUPROFEN 800 MG TAB PO SCH (16:37)
[2025-03-06] MEDS: SENNOSIDES-DOCUSATE SODIUM 1 EACH TAB PO SCH (22:58)
[2025-03-07 06:07] LABS: Basophils # (A) 0.02 10*3/uL (0.00-0.10); Basophils % (A) 0.2 %; Eosinophils # (A) 0.08 10*3/uL (0.04-0.35); Eosinophils % (A) 0.9 %; HCT 34.4 % (37.2-46.3); HGB 11.5 g/dL (12.0-15.0); Lymphocytes % (A) 28.2 %; MCH 29.6 pg (27.0-32.0); MCHC 33.4 g/dL (32.0-37.0); MCV 88.4 fL (80.0-97.0); Mean Platelet Volume 8.9 fL (9.5-12.2); Monocytes # (A) 0.49 10*3/uL (0.20-1.00); Monocytes % (A) 5.5 %; Neutrophils # (A) 5.76 10*3/uL (1.80-7.70); Platelet Count 318 10*3/uL (140-440); RBC 3.89 10*6/uL (4.10-5.20); RDW 12.7 % (11.5-14.5); WBC 8.87 10*3/uL (4.50-10.00)
--- NOTE | 2025-03-07 06:52 | P.PN ---
Progress Note - Text Progress Note Date: 03/07/25 Postoperative day 1 status post robotic vaginal hysterectomy under general endotracheal anesthesia, and intrathecal morphine given for postoperative analgesia, patient doing well, there is no anesthesia related complications, Patient had no headache, vital signs stable , Assessment and plan= postop day 1 status post robotic vaginal hysterectomy, doing well there is no anesthesia related complication.
[2025-03-07 08:31] VITALS: BP 110/67; PULSE 72; RESP 16; TEMP 97.8
--- NOTE | 2025-03-07 08:39 | P.DS ---
Providers Expected date of discharge: 03/07/25 Attending physician: Thi Levi Primary care physician: Geraldine Chin - Discharge Diagnosis(es) (1) Menorrhagia Current Visit: Yes Status: Acute Hospital Course: The patient presented to the office with continued problems with menorrhagia and ultimately requested definitive surgery with hysterectomy. She had previously undergone partial salpingectomy. She was taken to the operating room where she underwent da Farrah robotically assisted laparoscopic hysterectomy with bilateral salpingectomy for the remaining portions of tube followed by diagnostic cystoscopy. These procedures were carried out in an uncomplicated fashion. Her postoperative course has been unremarkable with vital signs remaining stable and her temperature has been afebrile throughout. She is tolerating regular diet. She was deemed stable for discharge on the morning of postoperative day #1 and was discharged home to follow-up in the office in 2 weeks for incision checks and 8 weeks routinely. Discharge instructions included calling for any significantly increased bleeding, pain, fever, GI or urinary complaints, incisional problems, or anything else that concerned her. She was additionally instructed to have nothing in the vagina for at least 8 weeks time and to abstain from any heavy lifting. She understood her instructions and agrees to follow-up as noted above. Discharge medications included any normal home medications as well as [id number] analgesic pain medications. She declined a prescription for narcotics for pain relief. Discharge hemoglobin and hematocrit were 11.5 and 34.4 respectively. Procedures: #1. Da Farrah robotically assisted laparoscopic hysterectomy with bilateral partial salpingectomy #2. Diagnostic cystoscopy Patient Condition at Discharge: Stable Plan - Discharge Summary Discharge Rx Participant: No New Discharge Prescriptions: No Action Sertraline [Zoloft] 25 mg PO QAM Multivitamin [Multivitamins Adult Gummies] 1 each PO DAILY Cholecalciferol [Vitamin D3 (25 Mcg = 1000 Iu)] 25 mcg PO DAILY Levothyroxine Sodium 25 mcg PO QAM Semaglutide [Wegovy] 0.25 mg SQ TH Discharge Medication List Cholecalciferol [Vitamin D3 (25 Mcg = 1000 Iu)] 25 mcg PO DAILY 12/22/24 [History] Levothyroxine Sodium 25 mcg PO QAM 12/22/24 [History] Multivitamin [Multivitamins Adult Gummies] 1 each PO DAILY 12/22/24 [History] Semaglutide [Wegovy] 0.25 mg SQ TH 12/22/24 [History] Sertraline [Zoloft] 25 mg PO QAM 12/22/24 [History] Follow up Appointment(s)/Referral(s): Emigdio Akins MD [STAFF PHYSICIAN] - 2 Weeks Discharge Disposition: HOME SELF-CARE
== END 2025-03-07 10:05 | disposition home or self-care (01) ==
LOC: OR 05:32 → 4FBP 09:00 → OR 03-07 10:05
PROVIDERS: ATTEND Obstetrics & Gynecology Obstetrics
DX: N83.8 Other noninflammatory disorders of ovary, fallopian tube and broad ligament (principal); E07.9 Disorder of thyroid, unspecified; G89.18 Other acute postprocedural pain; E28.2 Polycystic ovarian syndrome; Z79.890 Hormone replacement therapy; Z88.0 Allergy status to penicillin; Z98.51 Tubal ligation status
CPT/HCPCS: 58552; 81025; 85025; 88342; 88307; 88341; J2250; J0330; J1200; J1100; J2710; J0690; J2405; J2003; J2274; J3010; J0131; J1885; J2704; J0665; J1596